=== PATIENT | male | born 1990 | race Caucasian/White ===

== ENCOUNTER 2016-10-07 19:51 | Emergency (ER) | payer SELFPAY | END 2016-10-07 22:47 | disposition left against medical advice (07) | LOC: ER 19:51 | DX: Z53.9 Procedure and treatment not carried out, unspecified reason (principal); M79.641 Pain in right hand ==

== ENCOUNTER 2017-04-12 11:40 | Emergency (ER) | payer BC ==
[2017-04-12 11:45] VITALS: BP 156/100
[2017-04-12] MEDS ORDERED: LIDOCAINE 5% (700 MG) TRANSDERMAL ADH..PATCH TP ONE (12:00)
[2017-04-12] MEDS ORDERED: METHYLPREDNISOLONE INJ 125 MG/2 ML SDV IM ONE (12:00)
--- NOTE | 2017-04-12 12:03 | ER Document Report ---
HPI - HPI Pain Level: 5 Notes: Patient is a 26-year-old male presents the ED complaining of thoracic back pain status post lifting injury 3 days ago. Patient states that he was lifting heavy boxes when he felt the pain. Patient states that the pain worsens with any kind of movement. He has not had any conservative measures for symptoms. The pain does not radiate and is described as sharp and achy. Denies any back procedures recently. Denies any illicit drug use. Patient does smoke. Denies any loss of control of bowel or bladder, urinary retention, numbness/tingling, muscle paralysis/weakness. Patient states he is allergic to penicillins-- swelling. Denies any daily medications or other significant past medical history. Denies any recent travel, sick contacts, illness. Denies any fever, headache, neck stiffness, URI, sore throat, dysphagia, dysphasia, chest pain, palpitations, syncope, cough, wheeze, shortness of breath, abdominal pain, nausea/vomiting/diarrhea, dysuria, or rash. - ROS Notes: REVIEW OF SYSTEMS: CONSTITUTIONAL : Denies fever, chills, or sweats. Denies recent illness. EENT: Denies eye, ear, throat, or mouth pain or symptoms. Denies nasal or sinus congestion or discharge. Denies throat, tongue, or mouth swelling or difficulty swallowing. CARDIOVASCULAR: Denies chest pain. Denies palpitations or racing or irregular heart beat. Denies ankle edema. RESPIRATORY: Denies cough, cold, or chest congestion. Denies shortness of breath, difficulty breathing, or wheezing. GASTROINTESTINAL: Denies abdominal pain or distention. Denies nausea, vomiting , or diarrhea. Denies blood in vomitus, stools, or per rectum. Denies black, tarry stools. Denies constipation. GENITOURINARY: Denies difficulty urinating, painful urination, burning, frequency, blood in urine, or discharge. MUSCULOSKELETAL: see hpi SKIN: Denies rash, lesions or sores. NEUROLOGICAL: Denies confusion or altered mental status. Denies passing out or loss of consciousness. Denies dizziness or lightheadedness. Denies headache. Denies weakness or paralysis or loss of use of either side. Denies problems with gait or speech. Denies sensory loss, numbness, or tingling. Denies seizures. PSYCHIATRIC: Denies anxiety or stress. Denies depression, suicidal ideation, or homicidal ideation. ALL OTHER SYSTEMS REVIEWED AND NEGATIVE. Dictation was performed using [employer] voice recognition software - DERM Skin Color: Normal Past Medical History - Social History Smoking Status: Unknown if Ever Smoked Family History: Reviewed & Not Pertinent Patient has suicidal ideation: No Patient has homicidal ideation: No - Past Medical History Cardiac Medical History: Reports: Hx Heart Attack - 2010, Hx Hypertension - med noncompliant Renal/ Medical History: Denies: Hx Peritoneal Dialysis - Immunizations Hx Diphtheria, Pertussis, Tetanus Vaccination: Yes Vertical Provider Document - CONSTITUTIONAL Agree With Documented VS: Yes Notes: PHYSICAL EXAMINATION: GENERAL: Well-appearing, well-nourished and in no acute distress. HEAD: Atraumatic, normocephalic. EYES: Pupils equal round and reactive to light, extraocular movements intact, sclera anicteric, conjunctiva are normal. ENT: EAC clear b/l. TM's intact b/l without erythema, fluid, or perforation. Nares patent and without discharge. oropharynx clear without exudates. No tonsilar hypertrophy or erythema. Moist mucous membranes. No sinus tenderness. NECK: Normal range of motion, supple without lymphadenopathy. No rigidity/ meningismus. Non-tender. Spurling negative. LUNGS: Breath sounds clear to auscultation bilaterally and equal. No wheezes rales or rhonchi. HEART: Regular rate and rhythm without murmurs, rubs, gallops. ABDOMEN: Soft, nontender, nondistended abdomen. No guarding, no rebound. No masses appreciated. Normal bowel sounds present. No CVA tenderness bilaterally. No pulsatile mass. Musculoskeletal: Ext b/l: FROM to passive/active. Strength 5+/5. No focal deficits Back: FROM to passive/active. Strength 5+/5. No deformity/step-offs appreciated. + tenderness to T-paraspinal mm L>R. + trigger point. No vertebral point tenderness. Extremities: No cyanosis, clubbing, or edema b/l. Peripheral pulses 2+. Capillary refill less than 3 seconds. NEUROLOGICAL: Cranial nerves grossly intact. Normal speech, normal gait. Normal sensory, motor exams. Reflexes 2+ b/l. PSYCH: Normal mood, normal affect. SKIN: Warm, Dry, normal turgor, no rashes or lesions noted. - INFECTION CONTROL TRAVEL OUTSIDE OF THE [place] IN LAST 30 DAYS: No - RESPIRATORY O2 Sat by Pulse Oximetry: 100 Course - Re-evaluation Re-evalutation: 04/12/17 12:09 Patient is an afebrile, well-hydrated, 26-year-old male presents the ED with left paraspinal thoracic back pain, suspect back strain based on H&P today. Vitals are stable. PE otherwise unremarkable for any focal neurological deficits. Low suspicion for any herniated disc causing severe spinal stenosis, expanding/ruptured AAA, cauda equina syndrome, epidural mass lesion/abscess, fracture, or other systemic infection at this time. Solu-Medrol 125 mg given IM today along with a Lidoderm patch placement. I will send him home with Voltaren gel, meloxicam, and baclofen. Conservative measures encouraged otherwise for symptoms. Recheck/establish with a PCM this week. Consider consult with orthopedics, physical therapy, chiropractics. Return to the ED with any worsening/concerning symptoms as reviewed discharge. Patient is in agreement. - Vital Signs Vital signs: Temp Pulse Resp BP Pulse Ox 98.0 F 86 17 156/100 H 100 04/12/17 11:43 04/12/17 11:43 04/12/17 11:43 04/12/17 11:43 04/12/17 11:43 Discharge - Discharge Clinical Impression: Back strain Qualifiers: Encounter type: initial encounter Qualified Code(s): S39.012A - Strain of muscle, fascia and tendon of lower back, initial encounter Condition: Stable Disposition: HOME, SELF-CARE Instructions: Stretching Exercises for the Back ([facility]), Upper Back Strain ([facility]) , Muscle Relaxers ([facility]) Additional Instructions: Rest, Ice Take meds as directed Tylenol/ibuprofen as needed Light stretches daily Strength exercises as able Moist heat and massage may help F/u-establish with a PCM this week for recheck Consider consult(s) with Orthopedics, physical therapy, chiropractics for ongoing/worsening symptoms Return to the ED with any worsening symptoms and/or development of fever, headache, chest pain, palpitations, syncope, shortness of breath, trouble breathing, abdominal pain, n/v/d, blood in stool/urine, loss of control of bowel /bladder, urinary retention, muscle weakness/paralysis, numbness/tingling, or other worsening symptoms that are concerning to you. Prescriptions: Baclofen [Baclofen 10 mg Tablet] 5 mg PO BID PRN #10 tablet PRN Reason: Diclofenac Sodium [Voltaren] 4 gm TP QID PRN #100 gel..gm. PRN Reason: Meloxicam 7.5 mg PO BID PRN #20 tablet PRN Reason: Forms: Elevated Blood Pressure, Smoking Cessation Education Referrals: [facility] [Provider Group] - Follow up as needed [facility] [Provider Group] - Follow up as needed [facility] [Provider Group] - Follow up as needed
== END 2017-04-12 12:13 | disposition home or self-care (01) ==
LOC: ER 11:40
DX: S39.012A Strain of muscle, fascia and tendon of lower back, initial encounter (principal); M54.6 Pain in thoracic spine; X50.0XXA Overexertion from strenuous movement or load, initial encounter; Y92.009 Unspecified place in unspecified non-institutional (private) residence as the place of occurrence of the external cause; I25.2 Old myocardial infarction; I10 Essential (primary) hypertension; F17.200 Nicotine dependence, unspecified, uncomplicated; Z88.0 Allergy status to penicillin
CPT/HCPCS: 99283; 96374; J2930

== ENCOUNTER 2020-01-31 23:06 | Emergency (ER) | payer SELFPAY ==
--- NOTE | 2020-01-31 23:54 | ER Document Report ---
ED Medical Screen (RME) - General Chief Complaint: Ankle Injury Stated Complaint: LEFT FOOT SWELLING Time Seen by Provider: 01/31/20 23:49 Notes: 29-year-old male, chief complaint of left ankle/foot pain and swelling worsening over the past 3 days. He states at first it turns purplish after being swollen, now it is simply red. He states he works both on [employer] and as a [employer], he cannot recall a specific injury. He denies history of gout. He denies fever/chills, nausea/vomiting, recreational drugs, alcohol, denies any past medical history. TRAVEL OUTSIDE OF THE [place] IN LAST 30 DAYS: No - Related Data Allergies/Adverse Reactions: amoxicillin [Amoxicillin] Allergy (Verified 04/12/17 11:43) Penicillins Allergy (Verified 04/12/17 11:43) Past Medical History - Past Medical History Cardiac Medical History: Reports: Hx Heart Attack - 2010, Hx Hypertension - med noncompliant Renal/ Medical History: Denies: Hx Peritoneal Dialysis - Immunizations Hx Diphtheria, Pertussis, Tetanus Vaccination: Yes Physical Exam - Vital signs Vitals: Temp Pulse Resp BP Pulse Ox 98.6 F 109 H 20 169/104 H 98 01/31/20 23:18 01/31/20 23:18 01/31/20 23:18 01/31/20 23:18 01/31/20 23:18 - Extremities Foot: No: Normal - Significant swelling over the general foot dorsally and over the left lateral malleolus with edema, erythema, some warmth. Capillary refill and sensation intact. Patient can ambulate on the foot. Normal leg, knee, hip exam. Course - Re-evaluation Re-evalutation: I have greeted and performed a rapid initial assessment of this patient. A comprehensive ED assessment and evaluation of the patient, analysis of test results and completion of the medical decision making process will be conducted by additional ED providers. - Vital Signs Vital signs: Temp Pulse Resp BP Pulse Ox 98.6 F 109 H 20 169/104 H 98 01/31/20 23:18 01/31/20 23:18 01/31/20 23:18 01/31/20 23:18 01/31/20 23:18
--- NOTE | 2020-02-01 00:50 | RADIOLOGY REPORT (SQ) ---
CLINICAL INDICATION: ?injury, swelling, pain. . TECHNIQUE: 3 view(s) were obtained of the left ankle. COMPARISON: None. FINDINGS: No acute displaced fracture is identified of the ankle. Alignment appears anatomic. Joint spaces are within normal limits for age. Soft tissue swelling. IMPRESSION: No evidence of acute displaced fracture of the ankle. Foot dictated separately
--- NOTE | 2020-02-01 00:51 | RADIOLOGY REPORT (SQ) ---
CLINICAL INDICATION: ?injury, swelling, pain. . TECHNIQUE: 3 view(s) were obtained of the left foot. COMPARISON: None. FINDINGS: No acute displaced fracture is identified of the foot. Alignment appears anatomic. Joint spaces are within normal limits for age. Mild soft tissue swelling. IMPRESSION: No evidence of acute displaced fracture of the foot.
--- NOTE | 2020-02-01 01:24 | ER Document Report ---
HPI - HPI Time Seen by Provider: 01/31/20 23:49 Pain Level: 3 Context: Patient is a 29-year-old male, chief complaint of left ankle/foot pain and swelling worsening over the past 3 days. He states at first it turns purplish after being swollen, now it is simply red. He states he works both on [employer] and as a [employer], he cannot recall a specific injury. He denies history of gout. He denies fever/chills, nausea/vomiting, recreational drugs, alcohol, denies any past medical history. Past Medical History - General Information source: Patient - Social History Smoking Status: Current Every Day Smoker Lives with: Family Family History: Reviewed & Not Pertinent Patient has homicidal ideation: No - Past Medical History Cardiac Medical History: Reports: Hx Heart Attack - 2010, Hx Hypertension - med noncompliant Renal/ Medical History: Denies: Hx Peritoneal Dialysis Surgical Hx: Negative - Immunizations Hx Diphtheria, Pertussis, Tetanus Vaccination: Yes Vertical Provider Document - CONSTITUTIONAL General Appearance: WD/WN, No Apparent Distress - INFECTION CONTROL TRAVEL OUTSIDE OF THE [place] IN LAST 30 DAYS: No - HEENT HEENT: Atraumatic, Normal ENT Exam, Normocephalic - NECK Neck: Normal Inspection - RESPIRATORY Respiratory: Breath Sounds Normal, No Respiratory Distress - CARDIOVASCULAR Cardiovascular: Regular Rate, Regular Rhythm. negative: Tachycardia - GI/ABDOMEN Gastrointestinal: Abdomen Soft, Abdomen Non-Tender - BACK Back: Normal Inspection - MUSCULOSKELETAL/EXTREMETIES Musculoskeletal/Extremeties: Tender - Swelling over the general foot dorsally and over the left lateral malleolus with edema. No significant erythema or abnormal heat. No wounds noted. Capillary refill and sensation intact. ROM intact at the ankle. Patient can ambulate on the foot. Normal leg, knee, hip exam otherwise. - NEURO Level of Consciousness: Awake, Alert, Appropriate Motor/Sensory: No Motor Deficit, No Sensory Deficit - DERM Integumentary: Warm, Dry, No Rash Course - Re-evaluation Re-evalutation: Patient has swelling of the left lateral malleolus and over the dorsum of the foot mainly. In triage this was difficult to see clearly, however on repeat evaluation in the room there is no evidence of cellulitis, there is no open wound, there is no tenderness suggesting gout. Patient also states this was slightly purplish and has actually improved but is still swollen and painful. I suspect tendon injury. No concerning findings otherwise including no signs of compartment syndrome in the leg, normal distal neurovascular exam, no severe tenderness on palpation, range of motion present in the ankle, patient still able to ambulate. X-ray unremarkable except for soft tissue swelling. Discussed treatment, immobilization, provided with work release, discussed expectations and follow-up. Patient states understanding and agreement. Patient is hypertensive, apparently this is not new for the patient, he will follow-up with primary care in regards to this. Stable and well-appearing at time of discharge. - Vital Signs Vital signs: Temp Pulse Resp BP Pulse Ox 98.6 F 109 H 20 169/104 H 98 01/31/20 23:49 01/31/20 23:18 01/31/20 23:18 01/31/20 23:18 01/31/20 23:18 Procedures - Immobilization left ankle/foot Immobilizer type: Shadi wrap, Ankle stirrup Performed by: TANIYA Post-Proc Neuro Vasc Exam: Normal Alignment checked and good: Yes Discharge - Discharge Clinical Impression: Left ankle swelling, Swelling of left foot Condition: Stable Disposition: HOME, SELF-CARE Instructions: Oral Narcotic Medication ([facility]) Additional Instructions: The x-ray shows soft tissue swelling but no concerning findings. Your evaluation is most consistent with injury to the ligament and the ankle/foot causing swelling and pain. I recommend you wear the Shadi wrap, ankle stirrup, use the crutches, elevate as much as possible, ice 3-4 times a day for 10 to 15 minutes, and take the prescribed anti-inflammatory. Symptoms should gradually resolve. After swelling and pain resolves return to normal activity. Follow-up with primary care for additional management. Return for any concerning or worsening symptoms including developing or spreading redness, severe worsening swelling or pain, fever, or any other con cerning symptoms. Prescriptions: Naproxen 500 mg PO BID PRN #20 tablet PRN Reason: Forms: Elevated Blood Pressure, Return to Work
[2020-02-01] MEDS ORDERED: HYDROCODONE/ACETAMINOPHEN 5-325 MG (6 TAB/ER DISP) PO PRN (01:25)
[2020-02-01 02:06] VITALS: BP 167/111
== END 2020-02-01 02:03 | disposition home or self-care (01) ==
LOC: ER 23:06
DX: M25.472 Effusion, left ankle (principal); M79.89 Other specified soft tissue disorders; M25.572 Pain in left ankle and joints of left foot; M79.672 Pain in left foot; I10 Essential (primary) hypertension; I25.2 Old myocardial infarction; F17.200 Nicotine dependence, unspecified, uncomplicated
CPT/HCPCS: 99283